=== PATIENT | female | born 1965 | race Caucasian/White ===

== ENCOUNTER 2022-09-29 16:23 | Observation (INO) ==
[2022-09-29] MEDS ORDERED: ZOSYN VIAL 3.375 GRAMS 3.375 G in NS 100 ML IV 100 ML IV SCH (17:20)
--- NOTE | 2022-09-29 17:37 | EKG ---
Test Reason : SOB Blood Pressure : */* mmHG Vent. Rate : 66 BPM Atrial Rate : 66 BPM P-R Int : 148 ms QRS Dur : 86 ms QT Int : 410 ms P-R-T Axes : 55 -15 25 degrees QTc Int : 429 ms Normal sinus rhythm Normal ECG No previous ECGs available Confirmed by Oz Galvan (4) on 09/29/2022 6:35:47 PM Referred By: Confirmed By: Oz Galvan
[2022-09-29 18:11] LABS: BASOPHILS % (AUTO) 0.6 % (0.2-1.0); EOSINOPHILS # (AUTO) 0.1 x10^3/uL (0.0-0.2); EOSINOPHILS % (AUTO) 1.2 % (0.9-2.9); HEMATOCRIT 38.1 % (36.0-47.0); HEMOGLOBIN 13.2 g/dL (12.0-16.0); LYMPHOCYTES # (AUTO) 2.1 X10^3/uL (1.3-2.9); LYMPHOCYTES % (AUTO) 30.7 % (21.0-51.0); MEAN CORPUSCULAR HEMOGLOBIN 29.9 pg (27.0-34.0); MEAN CORPUSCULAR HGB CONC 34.6 g/dL (33.0-35.0); MEAN CORPUSCULAR VOLUME 86.4 fL (80.0-100.0); MEAN PLATELET VOLUME 8.3 fL (7.4-11.0); MONOCYTES # (AUTO) 0.3 x10^3/uL (0.3-0.8); MONOCYTES % (AUTO) 3.8 % (0.0-13.0); NEUTROPHILS # (AUTO) 4.4 x10^3/uL (2.2-4.8); NEUTROPHILS % (AUTO) 63.7 % (42.0-75.0); PLATELET COUNT 241 X10^3/uL (150.0-450.0); RED BLOOD COUNT 4.41 X10^6/uL (3.5-5.4); RED CELL DISTRIBUTION WIDTH 13.6 % (11.6-16.5)
[2022-09-29] MEDS: NS 1,000 ML IV 1,000 ML IV SCH (18:15)
[2022-09-29 18:25] LABS: ALANINE AMINOTRANSFERASE 26 Units/L (12-78); ALBUMIN 3.5 g/dL (3.4-5.0); ALKALINE PHOSPHATASE 135 Units/L (46-116); ASPARTATE AMINO TRANSFERASE 19 Units/L (15-37); BLOOD UREA NITROGEN 19 mg/dL (7-18); CALCIUM 8.7 mg/dL (8.5-10.1); CARBON DIOXIDE 30.5 mmol/L (21-32); CHLORIDE 106 mmol/L (98-107); COR NA(FOR HYPERGLY) 144 mmol/L (136-145); CREATININE 0.75 mg/dL (0.55-1.02); GLUCOSE 113 mg/dL (65-99); SODIUM 144 mmol/L (136-145); TOTAL PROTEIN 6.6 g/dL (6.4-8.2); eGFR NON BLACK RACES > 60 (>60)
[2022-09-29 18:33] LABS: POTASSIUM 2.9 mmol/L (3.5-5.1)
[2022-09-29] MEDS ORDERED: K-RIDER 10 MEQ/NS 100 ML 10 MEQ/100 ML BAG IV PRN (18:35)
[2022-09-29] MEDS ORDERED: POTASSIUM CHLORIDE LIQ 20 MEQ UDC PO PRN (18:35)
[2022-09-29] MEDS ORDERED: POTASSIUM CHL 40 MEQ/NS 0.45% 500 ML IV PRN (18:35)
[2022-09-29] MEDS ORDERED: MICRO K EXTEN CAP 10 MEQ PO PRN (18:35)
[2022-09-29] MEDS ORDERED: KLOR-CON PO PRN (18:35)
[2022-09-29] MEDS ORDERED: POTASSIUM CHL 60 MEQ/NS 0.45% 500 ML IV PRN (18:35)
[2022-09-29] MEDS ORDERED: K-DUR TAB 20 MEQ PO PRN (18:35)
[2022-09-29] MEDS: MAGNESIUM SULFATE 1 GRAM/100 mL PREMIX 1 G/100 ML BAG IV PRN ×2 (19:08→20:40)
--- NOTE | 2022-09-29 21:20 | EKG ---
Test Reason : SOB Blood Pressure : */* mmHG Vent. Rate : 68 BPM Atrial Rate : 68 BPM P-R Int : 116 ms QRS Dur : 88 ms QT Int : 406 ms P-R-T Axes : 32 -16 27 degrees QTc Int : 431 ms Normal sinus rhythm Normal ECG When compared with ECG of 29-SEP-2022 17:21, No significant change was found Confirmed by Oz Galvan (4) on 09/30/2022 5:48:21 PM Referred By: Confirmed By: Oz Galvan
[2022-09-29] MEDS: ZOSYN VIAL 3.375 GRAMS 3.375 G in NS 100 ML IV 100 ML IV SCH (21:35)
[2022-09-29] MEDS: ZANAFLEX PO SCH (21:42)
[2022-09-29] MEDS: ULTRAM PO SCH (21:43)
[2022-09-29 22:40] LABS: BILIRUBIN,URINE NEGATIVE (NEGATIVE); BLOOD/HEMOGLOBIN,URINE NEGATIVE (NEGATIVE); GLUCOSE, URINE NEGATIVE (NEGATIVE); KETONES,URINE NEGATIVE (NEGATIVE); LEUKOCYTE ESTERASE ,URINE NEGATIVE (NEGATIVE); NITRITES,URINE NEGATIVE (NEGATIVE); PH,URINE 6.5 (5.0 - 8.0); PROTEIN,URINE NEGATIVE (NEGATIVE); UROBILINOGEN,URINE NORMAL (NORMAL)
[2022-09-29 22:42] LABS: APPEARANCE,URINE CLEAR (CLEAR); COLOR,URINE YELLOW (YELLOW)
[2022-09-30 02:03] LABS: BASOPHILS # (AUTO) 0.1 X10^3/uL (0.0-0.1); BASOPHILS % (AUTO) 0.7 % (0.2-1.0); EOSINOPHILS # (AUTO) 0.1 x10^3/uL (0.0-0.2); EOSINOPHILS % (AUTO) 1.6 % (0.9-2.9); HEMOGLOBIN 11.6 g/dL (12.0-16.0); LYMPHOCYTES # (AUTO) 2.9 X10^3/uL (1.3-2.9); LYMPHOCYTES % (AUTO) 37.5 % (21.0-51.0); MEAN CORPUSCULAR HGB CONC 35.1 g/dL (33.0-35.0); MEAN CORPUSCULAR VOLUME 85.6 fL (80.0-100.0); MEAN PLATELET VOLUME 8.5 fL (7.4-11.0); MONOCYTES # (AUTO) 0.4 x10^3/uL (0.3-0.8); NEUTROPHILS # (AUTO) 4.3 x10^3/uL (2.2-4.8); NEUTROPHILS % (AUTO) 55.2 % (42.0-75.0); PLATELET COUNT 208 X10^3/uL (150.0-450.0); RED BLOOD COUNT 3.86 X10^6/uL (3.5-5.4); WHITE BLOOD COUNT 7.8 X10^3/uL (3.6-10.0)
[2022-09-30 02:14] LABS: ALANINE AMINOTRANSFERASE 21 Units/L (12-78); ALBUMIN 2.8 g/dL (3.4-5.0); ALKALINE PHOSPHATASE 108 Units/L (46-116); ASPARTATE AMINO TRANSFERASE 16 Units/L (15-37); BLOOD UREA NITROGEN 16 mg/dL (7-18); CALCIUM 7.9 mg/dL (8.5-10.1); CARBON DIOXIDE 28.5 mmol/L (21-32); CHLORIDE 109 mmol/L (98-107); COR CA(FOR HYPOALB) 8.9 mg/dL (8.5-10.1); CREATININE 0.71 mg/dL (0.55-1.02); GLUCOSE 103 mg/dL (65-99); MAGNESIUM 2.1 mg/dL (2.0-2.9); SODIUM 145 mmol/L (136-145); TOTAL PROTEIN 5.5 g/dL (6.4-8.2); eGFR NON BLACK RACES > 60 (>60)
--- NOTE | 2022-09-30 02:24 | EKG ---
Test Reason : SOB Blood Pressure : */* mmHG Vent. Rate : 55 BPM Atrial Rate : 55 BPM P-R Int : 146 ms QRS Dur : 82 ms QT Int : 474 ms P-R-T Axes : 47 -9 21 degrees QTc Int : 453 ms Sinus bradycardia Otherwise normal ECG No previous ECGs available Confirmed by Oz Galvan (4) on 09/30/2022 5:48:00 PM Referred By: Confirmed By: Oz Galvan
[2022-09-30] MEDS: ZOSYN VIAL 3.375 GRAMS 3.375 G in NS 100 ML IV 100 ML IV SCH ×3 (05:13→21:26)
--- NOTE | 2022-09-30 06:02 | CT ---
HISTORYC/O HAVING SINUS ISSUES X 2 WEEKS. YESTERDAY SHE BECAME VERY DIZZY AND OFF BALANCE. PT. COMPLETED ANTIBIOTICS LAST WEEK FOR SINUS INFECTION. C/O SLIGHT HEADACHE.STUDYBRAIN W/O CONCOMPARISONTECHNIQUEMultiple axial images of the brain were obtained from the skull base to the vertex without administration of IV contrast. Dose reduction techniques including Automated Exposure Control (AEC) and adjustment of mA and kV were utilized.FINDINGSNo acute intraparenchymal hemorrhage or mass can be identified. No extra-axial fluid collections are seen. No alteration in the attenuation of the brain parenchyma can be identified to suggest acute or subacute ischemic change. The ventricular system is symmetric and nondilated. There is chronic periventricular white matter disease observed and age-appropriate generalized atrophy.IMPRESSION1. No acute intracranial process can be identified.2. Chronic periventricular white matter disease likely on the basis of small vessel ischemic change.3. Age-appropriate atrophic changes are seen.Electronically signed by: MARYJANE DASILVA (September 30, 2022 06:00:46)
[2022-09-30] MEDS: NS 1,000 ML IV 1,000 ML IV SCH ×3 (06:23→19:24)
--- NOTE | 2022-09-30 06:46 | RAD ---
HISTORYC/O HAVING SINUS ISSUES X 2 WEEKS. YESTERDAY SHE BECAME VERY DIZZY AND OFF BALANCE. PT. COMPLETED ANTIBIOTICS LAST WEEK FOR SINUS INFECTION. C/O SLIGHT HEADACHE.STUDYCHEST, 1 [id number] trachea is midline. The cardiac silhouette is enlarged with a tortuous thoracic aorta. The lungs are clear without focal infiltrate or effusion. The bony thorax is unremarkable.IMPRESSIONNo acute cardiopulmonary disease.Electronically signed by: MARYJANE DASILVA (September 30, 2022 06:44:38)
[2022-09-30] MEDS: PROTONIX TAB 40 MG PO SCH (08:31)
[2022-09-30] MEDS: ULTRAM PO SCH ×2 (08:31→21:28)
[2022-09-30] MEDS: SYNTHROID 125 mcg TAB PO SCH (08:31)
[2022-09-30] MEDS: CELEBREX PO SCH (08:31)
[2022-09-30] MEDS: CYMBALTA PO SCH (08:31)
[2022-09-30] MEDS ORDERED: MODAFINIL 200 MG PO SCH (09:00)
--- NOTE | 2022-09-30 14:29 | DR.UPDATE ---
H&P Update H&P Reviewed: Yes Any changes to H&P?: Yes Changes noted:: WAS A DIRECT ADMISSION, OBSERVATION STATUS, FOR FURTHER EVALUATION AND TREATMENT OF NEAR SYNCOPE, DIZZINESS, UNSTEADY GAIT, AND HTN. PATIENT REPORTS THAT THE DIZZINESS, UNSTEADY GAIT, AND NEAR SYNCOPAL EPISODE STARTED ON WEDNESDAY. SHE REPORTS THAT SHE WAS SITTING OUTSIDE ON THE BENCH. WHEN SHE STOOD UP, SHE SUDDENLY BECAME DIZZY AND ALMOST PASSED OUT. SHE REPORTS BEING TREATED FOR SINUSITIS WITH CEFDINIR 300MG BID ABOUT TWO WEEKS AGO. SHE FINISHED THE ANTIBIOTICS ON 09/25/22. SHE REPORTS THAT HER SINUS SYMPTOMS IMPROVED BY THE TIME SHE COMPLETED THE ANTIBIOTICS, BUT HAVE SINCE RETURNED. SHE NOW COMPLAINS OF PRESSURE TO THE RIGHT EAR, NASAL CONGESTION, AND HEADACHE. HEADACHE IS DESCRIBED INTERMITTENT AND DULL. HER PMH INCLUDES: MULTIPLE SCLEROSIS, GERD, HIATAL HERNIA, HYPOTHYROIDISM, DEPRESSION, ABDOMINAL SURGERY, CHOLECYSTECTOMY, , BACK SURGERY. ON ADMISSION TO THE HOSPITAL, HER VITALS WERE: [id number]%-188/80. LABS WERE OBTAINED. WBC 7.0, RBC 4.41, HGB 13.2, HCT 38.1, PLT COUNT 241, SODIUM 144, POTASSIUM 2.9, CHLORIDE 106, BUN 19, CREATININE 0.75, GLUCOSE 113, CALCIUM 8.7, MAGNESIUM 1.5, AST 19, ALT 26, ALK PHOS 135, TOTAL PROTEIN 6.6, ALBUMIN 3.5. CARDIAC ENZYMES WERE WITHIN NORMAL RANGE. EKG REVEALED: NORMAL SINUS RHYTHM WITH HR 66 BPM. A URINALYSIS WAS OBTAINED AND WAS UNREMARKABLE. A BRAIN CT WITHOUT CONTRAST WAS OBTAINED AND REVEALED: 1. No acute intracranial process can be identified. 2. Chronic periventricular white matter disease likely on the basis of small vessel ischemic change. 3. Age- appropriate atrophic changes are seen. CHEST XRAY WAS OBTAINED AND REVEALED: NO ACUTE CARDIOPULMONARY DISEASE. SHE WAS STARTED ON NORMAL SALINE AT 80 ML/HR AND THE POTASSIUM AND MAGNESIUM PROTOCOLS. HER HOME MEDICATIONS OF CELEBREX, CYMBALTA, SYNTHROID, PROTONIX, MODAFANIL, ZANAFLEX, AND ULTRAM WERE RESUMED. WE WILL REPLACE HER POTASSIUM AND MAGNESIUM PER THE PROTOCOLS. SINCE SHE DOES NOT HAVE A HISTORY OF HYPERTENSION AND IS NOT CURRENTLY ON ANY ANTIHYPERTENSIVES, WE WILL JUST MONITOR HER BLOOD PRESSURE FOR NOW. OTHERWISE, WE WILL FOLLOW-UP WITH AM LABS AND CONTINUE TO MONITOR. TIME SPENT ON CLINICAL ASSESSMENT, REVIEWING LABS AND IMAGING, DECISION MAKING, AND DOCUMENTATION GREATER THAN 75 MINUTES. Patient was examined?: Yes
[2022-09-30] MEDS: ZANAFLEX PO SCH (21:26)
[2022-10-01] MEDS: NS 1,000 ML IV 1,000 ML IV SCH ×2 (02:28→08:42)
[2022-10-01] MEDS: ZOSYN VIAL 3.375 GRAMS 3.375 G in NS 100 ML IV 100 ML IV SCH (05:16)
[2022-10-01 06:05] LABS: BASOPHILS % (AUTO) 0.7 % (0.2-1.0); EOSINOPHILS # (AUTO) 0.1 x10^3/uL (0.0-0.2); EOSINOPHILS % (AUTO) 1.8 % (0.9-2.9); HEMATOCRIT 33.3 % (36.0-47.0); HEMOGLOBIN 11.7 g/dL (12.0-16.0); LYMPHOCYTES # (AUTO) 2.7 X10^3/uL (1.3-2.9); LYMPHOCYTES % (AUTO) 40.6 % (21.0-51.0); MEAN CORPUSCULAR HEMOGLOBIN 30.4 pg (27.0-34.0); MEAN CORPUSCULAR HGB CONC 35.1 g/dL (33.0-35.0); MEAN CORPUSCULAR VOLUME 86.6 fL (80.0-100.0); MEAN PLATELET VOLUME 8.7 fL (7.4-11.0); MONOCYTES # (AUTO) 0.4 x10^3/uL (0.3-0.8); MONOCYTES % (AUTO) 5.3 % (0.0-13.0); NEUTROPHILS # (AUTO) 3.5 x10^3/uL (2.2-4.8); NEUTROPHILS % (AUTO) 51.6 % (42.0-75.0); PLATELET COUNT 184 X10^3/uL (150.0-450.0); RED BLOOD COUNT 3.85 X10^6/uL (3.5-5.4); RED CELL DISTRIBUTION WIDTH 13.9 % (11.6-16.5); WHITE BLOOD COUNT 6.7 X10^3/uL (3.6-10.0)
[2022-10-01 06:17] LABS: ALANINE AMINOTRANSFERASE 28 Units/L (12-78); ALBUMIN 2.7 g/dL (3.4-5.0); ALKALINE PHOSPHATASE 113 Units/L (46-116); ASPARTATE AMINO TRANSFERASE 25 Units/L (15-37); BLOOD UREA NITROGEN 10 mg/dL (7-18); CALCIUM 8.2 mg/dL (8.5-10.1); CARBON DIOXIDE 29.5 mmol/L (21-32); CHLORIDE 109 mmol/L (98-107); COR CA(FOR HYPOALB) 9.2 mg/dL (8.5-10.1); GLUCOSE 105 mg/dL (65-99); SODIUM 145 mmol/L (136-145); TOTAL PROTEIN 5.4 g/dL (6.4-8.2); eGFR NON BLACK RACES > 60 (>60)
[2022-10-01] MEDS: ULTRAM PO SCH (08:18)
[2022-10-01] MEDS: SYNTHROID 125 mcg TAB PO SCH (08:18)
[2022-10-01] MEDS: CELEBREX PO SCH (08:18)
[2022-10-01] MEDS: PROTONIX TAB 40 MG PO SCH (08:18)
[2022-10-01] MEDS: CYMBALTA PO SCH (08:18)
[2022-10-01 08:42] VITALS: BP 127/67; PULSE 58; TEMP 98.1; O2SAT 96
== END 2022-10-01 13:40 | disposition home or self-care (01) ==
LOC: MED/SURG
PROVIDERS: ADMIT Internal Medicine; ATTEND Internal Medicine
DX: K44.9 Diaphragmatic hernia without obstruction or gangrene; F32.89 Other specified depressive episodes; E03.8 Other specified hypothyroidism; R42 Dizziness and giddiness; K21.9 Gastro-esophageal reflux disease without esophagitis; Z79.899 Other long term (current) drug therapy; R26.81 Unsteadiness on feet; E83.42 Hypomagnesemia; R51.9 Headache, unspecified; R55 Syncope and collapse; R03.0 Elevated blood-pressure reading, without diagnosis of hypertension